=== PATIENT | female | born 1995 | race African-American/Black ===

== ENCOUNTER 2022-03-31 18:36 | Emergency (ER) | payer BC, SELFPAY ==
[2022-03-31 18:44] VITALS: BP 145/99; PULSE 106; RESP 16; TEMP 36.7; O2SAT 100
--- NOTE | 2022-03-31 18:59 | ED.ABDPAIN ---
HPI - Abdominal Pain General Chief Complaint: Abdominal Pain Stated Complaint: ABD PAIN Source: patient Mode of arrival: ambulatory Limitations: no limitations History of Present Illness HPI narrative: Patient presents for evaluation of right-sided abdominal pain. Symptom onset this morning. She states she has a history of normal menstruation but her last menstrual period was 02/24/2022. She took a home test this Saturday which was negative. She repeated the test either or Saturday of this week and both test were negative. She contacted her [employer] and wanted for what sounds to be a serum hCG test. She did not receive results from that test. She woke from sleep with her symptoms this morning. She initially thought her symptoms were related to menstrual cramping. However cramping with menstruation is normally more diffuse in presentation and this is localized to the right side. She states she notices this more when she stands upright. She also reports some discomfort that has been constant in the right lower quadrant since this morning. She reports some urinary frequency but denies dysuria and hematuria. She has had a urinary tract infection in the past but states her urine is normally cloudy with infections. She denies any vaginal bleeding or discharge. No fever, chills, vomiting, change in bowel pattern. She did have some nausea earlier this week but thought it was related to consuming some alcohol. No history of abdominal surgeries. She is sexually active with 1 male partner, never using condoms. She does take an oral contraceptive but her last pack ended 6 days ago. She did not start the new pack as she thought she was getting ready to start menstruating. Related Data Home Medications Medication Instructions Recorded Confirmed levonorgestrel-ethinyl estradiol tablet 03/31/22 0.1 mg-20 mcg tablet (Aviane) Allergies Allergy/AdvReac Type Severity Reaction Status Date / Time No Known Allergies Allergy Verified 03/31/22 18:43 Review of Systems Review of Systems: CONSTITUTIONAL: Denies fever, chills, or sweats. EYES: Denies visual changes, redness, or discharge. ENT: Denies rhinorrhea, congestion, sore throat, or otalgia. CARDIOVASCULAR: Denies chest pain, palpitations, or edema. RESPIRATORY: Denies cough or dyspnea. GASTROINTESTINAL: Reports abdominal pain. Denies nausea, vomiting, or diarrhea. GENITOURINARY: Denies dysuria or hematuria. SKIN: Denies rash or itching. MUSCULOSKELETAL: Denies back pain, joint pain, or myalgia. NEUROLOGIC: Denies headache, numbness, dizziness, or weakness. PSYCHIATRIC: Denies anxiety or depression. [facility] Past Medical History Medical History No pertinent past medical history Surgical History Surgical History No pertinent past surgical history Family History Family History Mother Patient's mother is in good health Father Patient's father is in good health Grandparent Hypertension Sibling Patient's sister is in good health Patient's brother is in good health Other Diabetes mellitus Family history of arthritis Family history of cardiovascular disease Family history of gout Social History Social History Smoking status: Never smoker Second hand tobacco smoke exposure: No Alcohol intake: current Alcohol use details: social Substance use: never Gender identity (if verbalized by the patient): Female Sexual Orientation (if Verbalized by the Patient): Straight or Heterosexual Spiritual care concerns: No Exam Narrative: GENERAL: Well-appearing, well-nourished, and in no acute distress. HEAD: Normocephalic, atraumatic. EYES: PERRLA and EOMI. ENT: Nares clear, no rhinorrhea or epistaxis. Mu
== END 2022-03-31 19:16 | disposition short-term general hospital (02) ==
PROVIDERS: Emergency Provider Nurse Practitioner
DX: R10.31 Right lower quadrant pain (principal)
CPT/HCPCS: 81003; 81025; 99202; G0463

== ENCOUNTER 2022-03-31 19:30 | Emergency (ER) | payer BC, SELFPAY ==
--- NOTE | ~2022-03-31 | CT_ITS ---
EXAMINATION: CT abdomen pelvis wo con DATE: 03/31/2022 21:38 INDICATION: right lower abdominal pain TECHNIQUE: Computed tomography (CT) of the abdomen and pelvis was performed without intravenous contr ast. Automated exposure control and iterative reconstruction technique were employed. The dose-length product was 889.34 mGy-cm. COMPARISON: None FINDINGS: Lower thorax: Unremarkable Liver: Normal. Biliary/Gallbladder: Gallbladder is normal. No bile duct dilation. Pancreas: No mass or duct dilation. Spleen: Normal. Adrenals:No mass. Kidneys: No mass, stone, or hydronephrosis. GI tract: No small or large bowel dilation. Normal appendix. Mesentery/Peritoneum: No ascites, mass, or free air. Retroperitoneum: No mass. Pelvis: Pelvic organs are within normal limits. Soft Tissues: Soft tissues and body wall unremarkable. Bones: No acute osseous finding. IMPRESSION: No acute abdominopelvic process. Reviewed, dictated and finalized at location K.
[2022-03-31 19:49] VITALS: BP 165/105; PULSE 115; RESP 16; TEMP 36.4; O2SAT 99
[2022-03-31 20:02] LABS: Basophils Absolute Auto 0.1 K/mm3 (0.0-0.1); Basophils Percent Auto 0.9 % (0.2-1.2); Eosinophils Absolute Auto 0.3 K/mm3 (0-0.3); Eosinophils Percent Auto 2.8 % (0-4.4); Hematocrit 40.3 % (37.0-47.0); Hemoglobin 12.9 g/dL (12.0-15.0); Immature Granulocyte Absolute 0.02 K/mm3 (0.00-0.031); Immature Granulocyte Percent A 0.2 % (0-0.5); Lymphocytes Absolute Auto 2.36 K/mm3 (0.9-3.2); Lymphocytes Percent Auto 25.8 % (18.3-44.2); Mean Corpuscular Hemoglobin 28.1 pg (26-34); Mean Corpuscular Volume 87.8 fl (80-100); Mean Platelet Volume 9.5 fl (7.4-10.4); Monocytes Percent Auto 10.8 % (2.6-8.5); Neutrophils Absolute Auto 5.5 K/mm3 (1.3-6.7); Neutrophils Percent Auto 59.5 % (45.5-73.1); Platelet Count Result 272 k/mm3 (150-375); Red Blood Count 4.59 M/mm3 (4.2-5.4); Red Cell Distribution Width 12.9 % (11.5-14.5); White Blood Count 9.2 K/mm3 (4.5-10.0)
[2022-03-31 20:06] LABS: Appearance Urine Clear (Clear); Bilirubin Urine Negative (Negative); Blood Urine 2+ (Negative); Color Urine Yellow (Yellow); Glucose Urine UA Negative (Negative); Ketones Urine Negative (Negative); Leukocyte Esterase Ur Negative LEU/UL (Negative); Nitrate Urine Negative (Negative); Protein Urine Negative (Negative); Specific Grav Ur 1.025 (1.001-1.035); Urobilinogen Urine 0.2 mg/dL (<2.0)
[2022-03-31 20:11] LABS: Add Urine Microscopic? YES; Mucus Urine Rare /lpf; Squamous Epithelial Cell Urine Few /hpf (Few); WBC Urine 0-3 /hpf
[2022-03-31 20:15] LABS: Alanine Aminotransferase 21 U/L (6-35); Albumin Level 4.5 g/dL (3.5-5.1); Alkaline Phosphatase 70 U/L (38-126); Anion Gap 9 mmol/L (8-16); Aspartate Amino Transferase 28 U/L (14-36); Bilirubin,Total 0.2 mg/dL (0.2-1.3); Blood Urea Nitrogen 10 mg/dL (7-17); Calcium 9.2 mg/dL (8.4-10.2); Carbon Dioxide 27 mmol/L (22-30); Chloride 105 mmol/L (98-107); Estimated CRCL calculation 82 ml/min; Estimated Glomerular Filt Rate > 60; Glucose 84 mg/dL (65-110); Lipase 49 U/L (23-300); Sodium 141 mmol/L (137-145)
[2022-03-31 21:08] VITALS: BP 149/99; PULSE 109; RESP 16; O2SAT 100
[2022-03-31 21:12] LABS: Pregnancy On Board Control Positive; Urine Pregnancy Test Negative
--- NOTE | 2022-03-31 21:25 | ED.ABDPAIN ---
HPI - Abdominal Pain General Chief Complaint: Abdominal Pain Stated Complaint: lower abdominal pain Time Seen by Provider: 03/31/22 20:51 Source: patient, RN notes reviewed and old records reviewed Mode of arrival: ambulatory Limitations: no limitations History of Present Illness HPI narrative: This is a 26 year old female who presents for evaluation of nausea and right lower abdominal pain. She reports nausea this week and she developed right lower abdominal pain today. She describes her abdominal pain as sharp pain that worsens with movement and walking. She has not taken any medication for her pain. She denies history of similar pain. She denies fever, chills, vomiting, diarrhea, dysuria or increased urinary urgency. She rates pain as 7/10. She was seen at [facility]. She had negative urine test and urine dip that shows hematuria. she denies history of kidney stones or ovarian cyst. Related Data Home Medications Medication Instructions Recorded Confirmed levonorgestrel-ethinyl estradiol tablet 03/31/22 0.1 mg-20 mcg tablet (Aviane) Allergies Allergy/AdvReac Type Severity Reaction Status Date / Time No Known Allergies Allergy Verified 03/31/22 21:08 Review of Systems Review of Systems: All systems reviewed & are unremarkable except as noted in HPI and below Constitutional: Constitutional: Denies chills and Denies fever(s) Cardiovascular: Cardiovascular: Denies chest pain and Denies rapid heart rate Respiratory: Respiratory: Denies chest congestion and Denies cough Gastrointestinal: Gastrointestinal: Reports abdominal pain, Denies diarrhea, Reports nausea and Denies vomiting Genitourinary: Genitourinary: Denies hematuria, Denies nocturia and Denies dysuria Musculoskeletal: Musculoskeletal: Denies back pain [facility] Past Medical History Medical History No pertinent past medical history Surgical History Surgical History No pertinent past surgical history Family History Family History Mother Patient's mother is in good health Father Patient's father is in good health Grandparent Hypertension Sibling Patient's sister is in good health Patient's brother is in good health Other Diabetes mellitus Family history of arthritis Family history of cardiovascular disease Family history of gout Social History Social History Smoking status: Never smoker Second hand tobacco smoke exposure: No Alcohol intake: current Alcohol use details: social Substance use: never Gender identity (if verbalized by the patient): Female Sexual Orientation (if Verbalized by the Patient): Straight or Heterosexual Spiritual care concerns: No Exam Const: General: healthy appearing Nutritional Appearance: well nourished Orientation/consciousness: patient oriented x3 Limitations: no limitations HENMT: Head: normal to inspection Eyes: EOM: EOMs intact bilaterally Chest: Chest palpation & inspection: normal inspection of the chest Resp: Effort & Inspection: normal respiratory effort Auscultation: clear to auscultation bilaterally Cardio: Rate: tachycardic Rhythm: regular rhythm Heart sounds: no murmurs GI: GI Palp: Yes Soft to palpation, Yes Tenderness to palpation present (GI) (RLQ), No Guarding due to palpation present (GI), No Rigid due to palpation and No Hernia present Auscultation: normal bowel sounds Urinary Catheter: Urinary Catheter: patent and draining Skin: General skin exam: normal color Neuro: General: patient oriented x3, moves all extremities and CN's II-XI intact bilaterally Extrem: General: normal to inspection Psych: Mental Status: mental status grossly normal Course Reevaluation(s) Reevaluation #1:
--- NOTE | 2022-03-31 21:27 | PC.NURSE ---
Pt to CT via stretcher at this time
[2022-03-31] MEDS: SODIUM CHLORIDE 0.9% IV 1,000 ML 999 ML IV CONT (21:41)
[2022-03-31] MEDS: ONDANSETRON INJ 4 MG/2 ML VIAL IV PUSH (21:41)
[2022-03-31] MEDS: KETOROLAC 30 MG/ML VIAL (*BKC) IV PUSH (21:41)
[2022-03-31 21:45] VITALS: BP 124/80; PULSE 98; RESP 18; O2SAT 100
[2022-03-31 23:08] VITALS: BP 133/81; PULSE 98; RESP 16; O2SAT 99
== END 2022-03-31 23:10 | disposition home or self-care (01) ==
PROVIDERS: Emergency Medicine; Emergency Provider General Practice
DX: R10.31 Right lower quadrant pain (principal)
CPT/HCPCS: 36415; 74176; 80053; 81001; 81025; 83690; 85025; 96361; 96374; 96375; 99284; J1885; J2405; J7030

== ENCOUNTER → 2022-04-12 14:44 | Outpatient (CLI) | payer BC, SELFPAY ==
--- NOTE | ~2022-04-12 | US_ITS ---
EXAMINATION: US pelvic complete w TV DATE: 04/12/2022 15:12 INDICATION: Pelvic pain Comparison:No prior studies for comparison. TECHNIQUE: Multiple transabdominal and endovaginal sonographic images of the pelvis performed. FINDINGS: The uterus measures 7.7 x 3.7 x 4.6 cm. The endometrial complex measures 4 mm. There is flu id in the cervix. The right ovary measures 3.2 x 1.5 x 2.5 cm and the left ovary measures 2.4 x 1.5 x 2.3 cm. There ar e small follicles in each ovary. Normal doppler signal in both ovaries. There is free fluid in the pelvis, likely physiologic. There are no abnormal masses seen on either s maeve. IMPRESSION: 1. Unremarkable pelvic ultrasound. Reviewed, dictated and finalized at location A.
== END ==
PROVIDERS: PCP Nurse Practitioner; Visit Provider Nurse Practitioner
DX: R10.2 Pelvic and perineal pain (principal)
CPT/HCPCS: 76830; 76856

== ENCOUNTER 2022-10-08 11:41 | Emergency (ER) | payer BC, SELFPAY ==
[2022-10-08 12:01] VITALS: BP 156/109; PULSE 94; RESP 16; TEMP 36.1; O2SAT 100
--- NOTE | 2022-10-08 12:17 | ED.URI ---
HPI - URI/Sore Throat General Chief Complaint: Upper Respiratory Infection Stated Complaint: NASAL CONGESTION/BODY ACHES Time Seen by Provider: 10/08/22 12:09 Source: patient Mode of arrival: ambulatory Limitations: no limitations History of Present Illness HPI Narrative: Patient presents today complaining 3 day history of congestion, cough, rhinorrhea, body aches. She also states she did not have a voice for 2 days coupled with since returned today. Denies fever or sore throat. Denies any known sick contacts. Denies history of asthma or COPD. She has been taking TheraFlu, Tylenol, ibuprofen, DayQuil, NyQuil. She is a nonsmoker. She has received a flu vaccine this season. Related Data Home Medications Medication Instructions Recorded Confirmed levonorgestrel-ethinyl estradiol 1 tablet PO DAILY 10/08/22 10/08/22 0.1 mg-20 mcg tablet (Aviane) Allergies Allergy/AdvReac Type Severity Reaction Status Date / Time No Known Allergies Allergy Verified 10/08/22 12:12 Review of Systems Review of Systems: CONSTITUTIONAL: Denies fever, chills, or sweats.+ body aches EYES: Denies visual changes, redness, or discharge. ENT: Denies sore throat, or otalgia.+ congestion, rhinorrhea, hoarse voice CARDIOVASCULAR: Denies chest pain, palpitations, or edema. RESPIRATORY: Denies dyspnea.+ cough GASTROINTESTINAL: Denies abdominal pain, nausea, vomiting, or diarrhea. GENITOURINARY: Denies dysuria or hematuria. SKIN: Denies rash, itching, or wounds. MUSCULOSKELETAL: Denies back pain, joint pain, or myalgia. NEUROLOGIC: Denies headache, numbness, tingling, or weakness. PSYCH: Denies depression or anxiety. [facility] Past Medical History Medical History No pertinent past medical history Surgical History Surgical History No pertinent past surgical history Family History Family History Mother Patient's mother is in good health Father Patient's father is in good health Grandparent Hypertension Sibling Patient's sister is in good health Patient's brother is in good health Other Diabetes mellitus Family history of arthritis Family history of cardiovascular disease Family history of gout Social History Social History Smoking status: Never smoker Second hand tobacco smoke exposure: No Alcohol intake: current Alcohol use details: social Substance use: never Gender identity (if verbalized by the patient): Female Sexual Orientation (if Verbalized by the Patient): Straight or Heterosexual Spiritual care concerns: No Comments At time of signature, I have reviewed and agree with nursing past medical, surgical, social and family history unless otherwise noted. Please see nursing chart for further information. There is no relevant family history pertinent to the presenting complaint Exam Narrative: GENERAL: Well-appearing, well-nourished, and in no acute distress. HEAD: Normocephalic, atraumatic. EYES: EOMI. No redness or drainage. Conjunctivae normal. ENT: Mucous membranes pink and moist. Nares congested. No rhinorrhea. TMs normal bilaterally. Throat without erythema. Tonsils 3+ without exudate. Uvula midline. NECK: Normal AROM. Supple. No lymphadenopathy. CHEST: No respiratory distress. Clear to auscultation. HEART: Regular rate and rhythm. No murmur appreciated. Normal peripheral pulses. EXTREMITIES: Normal range of motion. No edema. SKIN: Warm, dry, no rash. Capillary refill normal. Normal skin turgor. NEURO: No focal deficits. Alert and oriented x3. Gait steady. PSYCH: Normal affect. No signs of depression or anxiety. Course Course Level of Care: Express Care Visit Vital Signs Vital signs: Vital Signs Temperature 97 F L 10/08/22 12:01 Pul
== END 2022-10-08 12:35 | disposition home or self-care (01) ==
PROVIDERS: Emergency Provider Nurse Practitioner; PCP Family Medicine
DX: J02.0 Streptococcal pharyngitis (principal)
CPT/HCPCS: 87880; 99213; G0463

== ENCOUNTER 2022-12-23 17:22 | Emergency (ER) | payer BC, SELFPAY ==
[2022-12-23 17:34] VITALS: BP 128/81; PULSE 138; RESP 16; TEMP 38.2; O2SAT 99
--- NOTE | 2022-12-23 17:37 | ED.URI ---
HPI - URI/Sore Throat General Chief Complaint: Upper Respiratory Infection Stated Complaint: FEVER/SORE THROAT Time Seen by Provider: 12/23/22 17:43 Source: patient, RN notes reviewed and old records reviewed Mode of arrival: ambulatory Limitations: no limitations History of Present Illness HPI Narrative: 27 year old female who presents to [facility] care with complaints of sore throat, fevers, and body aches intermittently for the past week. Patient reports that she had a 104F fever today and took Ibuprofen with temperature now 100.7F. Patient reports that she has also been experiencing cough which is dry and intermittent. Patient has been COVID vaccinated and also has had Flu shot this season. MD elicited complaint: fever, sore throat and other (body aches) Onset (ago): week(s) (1) Pain scale (0-10): 7 Able to tolerate fluids by mouth: Yes Treatments prior to arrival: ibuprofen Related Data Allergies Allergy/AdvReac Type Severity Reaction Status Date / Time No Known Allergies Allergy Verified 12/23/22 17:31 Review of Systems Review of Systems: CONSTITUTIONAL: Reports malaise, chills, sweats, or fever. EYES: Denies visual changes, redness, or discharge. ENT: Reports rhinorrhea, congestion, sinus pain,no otalgia, positive for sore throat. CARDIOVASCULAR: Denies chest pain, palpitations, or edema. RESPIRATORY: Reports dry cough.? Denies dyspnea. GASTROINTESTINAL: Denies abdominal pain, nausea, vomiting, diarrhea SKIN: Denies rash or itching. MUSCULOSKELETAL: reports myalgia. NEUROLOGIC: Denies headache. All systems reviewed & are unremarkable except as noted in HPI and below PMFSH Past Medical History Medical History Sinusitis Strep pharyngitis Surgical History Surgical History Rosanky teeth extracted Family History Family History Mother Patient's mother is in good health Father Patient's father is in good health Grandparent Hypertension Sibling Patient's sister is in good health Patient's brother is in good health Other Diabetes mellitus Family history of arthritis Family history of cardiovascular disease Family history of gout Social History Social History (Updated 12/25/22 @ 08:55 by Meri Thrasher NP) Smoking status: Never smoker Second hand tobacco smoke exposure: No Alcohol intake: current Alcohol use details: social Substance use: never Living arrangements: with family Gender identity (if verbalized by the patient): Female Sexual Orientation (if Verbalized by the Patient): Straight or Heterosexual Spiritual care concerns: No Comments At time of signature, agree with nursing past medical, surgical, social and family history. There is no relevant family history pertinent to the presenting complaint Exam Narrative: GENERAL: Well-appearing, well-nourished, and in no acute distress. HEAD: Normocephalic EYES: PERRLA, conjunctivae clear ENT: Nares clear, turbinates edematous and erythematous, clear discharge. Mucous membranes moist. TM pearly alberto with dull light reflex bilaterally; no tragal tenderness. Oropharynx erythematous without lesions. Tonsils red and enlarged and without exudate, no drooling, no hoarseness, no trismus, uvula midline. NECK: Supple. lymphadenopathy CHEST: Clear to auscultation, breath sounds equal. No wheezing, rhonchi, rales, or stridor. No respiratory distress, speaks in full sentences.dry cough SAO2 99% on room air HEART: Regular rate and rhythm. No murmur heard. SKIN: Warm, dry, no rash. NEURO: Alert and oriented x3. PSYCH: Normal mood and affect Course Course Emergency Course: Patient is aware of diagnosis, understands and agrees to treatment plan.? Anticipatory guidance given.? Patient agrees to follow-up as directed and is aware of reasons to
== END 2022-12-23 17:45 | disposition home or self-care (01) ==
PROVIDERS: Emergency Provider Registered Nurse
DX: J02.0 Streptococcal pharyngitis (principal)
CPT/HCPCS: 87880; 99213; G0463

== ENCOUNTER → 2023-02-26 11:09 | Outpatient (CLI) | payer BC, SELFPAY ==
--- NOTE | ~2023-02-26 | US_ITS ---
Pelvic ultrasound. Clinical History: First trimester , inconclusive viability Technique: Realtime transabdominal and transvaginal scanning of the pelvis was performed. Color flow Doppler and Doppler spectral analysis were performed. Findings: The uterus is anteverted, and contains an intrauterine gestation. Small subchorionic hemorr velma measures 1.6 x 0.7 x 1.4 cm. [place]-rump length of 2.7 cm corresponds to an estimated gestational age of 9 weeks 4 days. heart rate is 178 bpm. Neither ovary visualized. No adnexal mass seen. There is no evidence of free fluid in the cul de sac. Impression: Live intrauterine gestation with estimated gestational age of 9 weeks 4 days. heart rate is 178 bpm. Sonographic KISHORE is 09/27/2023. Small subchorionic hemorrhage, as detailed above. Reviewed, dictated and finalized at location . Impression: Live intrauterine gestation with estimated gestational age of 9 weeks 4 days. F etal heart rate is 178 bpm. Sonographic KISHORE is 09/27/2023. Small subchorionic hemorrhage, as detailed above.
== END ==
PROVIDERS: PCP Advanced Practice Midwife; Visit Provider Advanced Practice Midwife
DX: O36.80X0 Pregnancy with inconclusive fetal viability, not applicable or unspecified (principal); Z3A.09 9 weeks gestation of pregnancy
CPT/HCPCS: 76801

== ENCOUNTER → 2023-03-29 11:19 | Outpatient (CLI) | payer BC, SELFPAY ==
--- NOTE | ~2023-03-29 | US_ITS ---
EXAMINATION: US OB limited DATE: 03/29/2023 11:37 INDICATION: Subchorionic hematoma during first trimester TECHNIQUE: Real-time ultrasound of the pelvis was performed. The interpreting radiologist was not pre sent for the study. COMPARISON: 02/26/2023 FINDINGS: There is a single living fetus in breech presentation. The placenta is anterior. No persist ent subchorionic hematoma is identified. cardiac activity and movement are noted. h eart rate is 164 beats per minute (bpm). The amniotic fluid index is subjectively normal. IMPRESSION: 1. Single living fetus in breech presentation. 2. No persistent subchorionic hematoma identified. Reviewed, dictated and finalized at location B.
== END ==
PROVIDERS: PCP Emergency Medicine; Visit Provider Obstetrics & Gynecology Gynecology
DX: O36.8910 Maternal care for other specified fetal problems, first trimester, not applicable or unspecified (principal); Z3A.00 Weeks of gestation of pregnancy not specified
CPT/HCPCS: 76815

== ENCOUNTER → 2023-05-10 10:18 | Outpatient (CLI) | payer BC, SELFPAY ==
--- NOTE | ~2023-05-10 | US_ITS ---
EXAMINATION: US OB /maternal detail DATE: 05/10/2023 10:56 INDICATION: Second trimester anatomic survey TECHNIQUE: Real-time ultrasound of the pelvis was performed. COMPARISON: None. FINDINGS: There is a single living fetus in vertex presentation. The placenta is anterior and 4.2 cm from the i nternal cervical os. The measured cervical length is 2.9 cm. heart rate is 153 beats per minute (bpm). cardiac activity and movement are noted. The amniotic fluid index is subjectivel y normal. The following anatomy was identified as normal: 4 chamber heart 3 vessel cord cord insertion kidneys urinary bladder stomach spine diaphragm ventricles cisterna magna cerebellum The following biometric data were obtained: Biparietal diameter (BPD): 4.8 cm; head circumference (HC): 17.9 cm; abdominal circumference (AC): 5. 4 cm; femur length (FL): 3.3 cm. These measurements are concordant. Estimated weight is 359 g +/- 53 g, which correlates with the 75th percentile when 09/27/2023 is used as estimated date of delivery. As single measurements, these parameters are each equal to the following estimated gestational ages w ith ranges of +/- 2 standard deviations: BPD: 20 weeks 4 days ( 18 weeks 5 days - 22 weeks 2 days). HC: 20 weeks 3 days ( 19 weeks 0 days - 21 weeks 6 days). AC: 20 weeks 4 days ( 18 weeks 4 days - 22 weeks 5 days). FL: 20 weeks 3 days ( 18 weeks 5 days - 22 weeks 2 days). estimated gestational age based solely on measurements from this exam is 20 weeks 4 days +/- 1 weeks 3 days. IMPRESSION: 1. Single living fetus in vertex presentation. 2. Estimated weight is 359 g +/- 53 g, which correlates with the 75th percentile when 09/27/2023 is used as estimated date of delivery. Reviewed, dictated and finalized at location B. IMPRESSION: 1. Single living fetus in vertex presentation. 2. Estimated weight is 359 g +/- 53 g, which correlates with the 75th per centile when 09/27/2023 is used as estimated date of delivery.
== END ==
PROVIDERS: PCP Advanced Practice Midwife; Visit Provider Advanced Practice Midwife
DX: Z36.9 Encounter for antenatal screening, unspecified (principal); Z3A.20 20 weeks gestation of pregnancy
CPT/HCPCS: 76805

== ENCOUNTER 2023-09-13 12:30 | Outpatient (CLI) | payer BC, SELFPAY ==
[2023-09-13 13:24] LABS: Hemoglobin 10.6 g/dL (12.0-15.0); Mean Corpuscular HGB Conc 33.1 g/dl (32-36); Mean Corpuscular Hemoglobin 29.9 pg (26-34); Mean Corpuscular Volume 90.4 fl (80-100); Mean Platelet Volume 10.5 fl (7.4-10.4); Platelet Count Result 224 k/mm3 (150-375); Red Blood Count 3.54 M/mm3 (4.2-5.4); Red Cell Distribution Width 13.5 % (11.5-14.5); White Blood Count 9.8 K/mm3 (4.5-10.0)
[2023-09-13 13:42] LABS: Alanine Aminotransferase 13 U/L (6-35); Albumin Level 3.9 g/dL (3.5-5.1); Alkaline Phosphatase 184 U/L (38-126); Anion Gap 9 mmol/L (8-16); Aspartate Amino Transferase 22 U/L (14-36); Bilirubin,Total 0.5 mg/dL (0.2-1.3); Blood Urea Nitrogen 8 mg/dL (7-17); Calcium 9.2 mg/dL (8.4-10.2); Carbon Dioxide 21 mmol/L (22-30); Chloride 107 mmol/L (98-107); Estimated Glomerular Filt Rate > 60; Glucose 80 mg/dL (65-110); Potassium 3.8 mmol/L (3.4-5.0); Sodium 137 mmol/L (137-145); Uric Acid 6.3 mg/dL (2.5-7.5)
== END 2023-09-13 12:31 | disposition home or self-care (01) ==
LOC: ANHLAB 12:33
PROVIDERS: Visit Provider Advanced Practice Midwife
DX: O13.3 Gestational [pregnancy-induced] hypertension without significant proteinuria, third trimester (principal); Z3A.00 Weeks of gestation of pregnancy not specified
CPT/HCPCS: 36415; 80053; 84550; 85027

== ENCOUNTER 2023-09-16 08:26 | Outpatient (CLI) | payer BC, SELFPAY ==
[2023-09-16 10:18] LABS: Total Protein Urine Random < 5 mg/dL
[2023-09-16 11:00] LABS: Total Protein Urine 24 Hr 40 mg/24hr (28-141); Total Volume 24 Hour Urine 800 ml
== END 2023-09-16 08:27 | disposition home or self-care (01) ==
LOC: ANHLAB 08:27
PROVIDERS: Visit Provider Advanced Practice Midwife
DX: O13.3 Gestational [pregnancy-induced] hypertension without significant proteinuria, third trimester (principal); Z3A.00 Weeks of gestation of pregnancy not specified
CPT/HCPCS: 81050; 84156

== ENCOUNTER 2023-09-22 17:35 | Inpatient (IN) | payer BC, SELFPAY ==
[2023-09-22] VITALS (20 sets, daily range): BP systolic 121–144; BP diastolic 65–110; PULSE 71–99; TEMP 36.4–36.6; BMI 44.1
--- NOTE | ~2023-09-22 | US_ITS ---
EXAMINATION:US venous doppler LE RT INDICATION:Calf pain. Tachycardia. TECHNIQUE: Multiple grayscale, color flow and Doppler images of the right lower extremity deep venous systems were obtained and reviewed. COMPARISON:No prior studies for comparison. FINDINGS: The common femoral, superficial femoral and popliteal veins demonstrate normal respiratory variation, augmentation and compressibility. Color flow is also seen within the posterior tibial, pe roneal, greater saphenous and profunda veins. IMPRESSION: 1: No lower extremity deep venous thrombosis. Reviewed, dictated and finalized at location B. [employer]
--- NOTE | 2023-09-22 18:35 | LDADM ---
This patient, Siomara Melendez, was admitted to Labor/Delivery/Recovery 107 on 09/22/23 at 17:35. Plans for labor, pain management and were discussed with patient. Patient/family oriented to hospital policies and general routines including ID bracelet, bed and alarms, visiting hours, pain management, procedures, bathroom and other care routines, personal items, smoking policy, room service/diet and guest tray routines, security routines, and visiting hours. Patient/Family are encouraged to report perceived risks to care and to ask questions if they do not understand what they are told or what they should do. See OBIX for further documentation.
[2023-09-22 19:35] LABS: Basophils Percent Auto 0.2 % (0.2-1.2); Eosinophils Absolute Auto 0.1 K/mm3 (0-0.3); Eosinophils Percent Auto 0.7 % (0-4.4); Hematocrit 32.1 % (37.0-47.0); Hemoglobin 10.6 g/dL (12.0-15.0); Immature Granulocyte Absolute 0.04 K/mm3 (0.00-0.031); Immature Granulocyte Percent A 0.4 % (0-0.5); Lymphocytes Absolute Auto 1.66 K/mm3 (0.9-3.2); Lymphocytes Percent Auto 16.8 % (18.3-44.2); Mean Corpuscular Hemoglobin 30.3 pg (26-34); Mean Corpuscular Volume 91.7 fl (80-100); Mean Platelet Volume 10.3 fl (7.4-10.4); Monocytes Absolute Auto 0.9 K/mm3 (0.1-0.6); Neutrophils Absolute Auto 7.2 K/mm3 (1.3-6.7); Neutrophils Percent Auto 72.9 % (45.5-73.1); Platelet Count Result 217 k/mm3 (150-375); Red Cell Distribution Width 13.9 % (11.5-14.5); White Blood Count 9.9 K/mm3 (4.5-10.0)
[2023-09-22] MEDS: miSOPROStol 25 MCG TABLET PO ×2 (19:35→23:54)
[2023-09-22] MEDS: LACTATED RINGERS 1,000 ML 125 ML IV CONT (20:39)
[2023-09-22 21:49] LABS: Alanine Aminotransferase 13 U/L (6-35); Albumin Level 3.8 g/dL (3.5-5.1); Alkaline Phosphatase 168 U/L (38-126); Anion Gap 9 mmol/L (8-16); Aspartate Amino Transferase 24 U/L (14-36); Bilirubin,Total 0.5 mg/dL (0.2-1.3); Blood Urea Nitrogen 9 mg/dL (7-17); Calcium 9.4 mg/dL (8.4-10.2); Carbon Dioxide 22 mmol/L (22-30); Chloride 105 mmol/L (98-107); Estimated CRCL calculation 126 ml/min; Estimated Glomerular Filt Rate > 60; Glucose 80 mg/dL (65-110); Potassium 3.7 mmol/L (3.4-5.0); Sodium 136 mmol/L (137-145)
[2023-09-23] VITALS (231 sets, daily range): BP systolic 72–172; BP diastolic 23–120; PULSE 36–215; TEMP 36.2–38.8; O2SAT 64–100
[2023-09-23] MEDS: LACTATED RINGERS 1,000 ML 125 ML IV CONT ×2 (03:25→11:09)
[2023-09-23] MEDS: miSOPROStol 25 MCG TABLET 50 MCG PO (03:57)
--- NOTE | 2023-09-23 06:02 | WPDANESEPP ---
Anes - Eval Pre Procedure Procedure: labor epidural Date/Time: 09/23/23 06:02 Pre Op Diagnosis: Induction of Labor Patient Data Age: 28 Gender: F Height: 1.52 m Weight: 102.7 kg Last Vital Signs Temp 36.6 C 09/22/23 21:30 Pulse 81 09/23/23 06:01 BP 155/91 H 09/23/23 06:01 Allergies Allergy/AdvReac Type Severity Reaction Status Date / Time No Known Allergies Allergy Verified 12/23/22 17:31 Home Medications Medication Instructions Recorded Confirmed Type ferrous sulfate 325 mg (65 mg 325 mg PO DAILY 08/30/23 08/30/23 History iron) tablet prenat.vits,violette,frr-jbup-nhyis 1 tablet 08/30/23 History valacyclovir 500 mg tablet 500 mg PO BID 08/30/23 08/30/23 History (Valtrex) Laboratory Tests 09/22/23 09/22/23 17:51 21:23 WBC 9.9 K/mm3 (4.5-10.0) RBC 3.50 L M/mm3 (4.2-5.4) Hgb 10.6 L g/dL (12.0-15.0) Hct 32.1 L % (37.0-47.0) MCV 91.7 fl (80-100) MCH 30.3 pg (26-34) MCHC 33.0 g/dl (32-36) RDW 13.9 % (11.5-14.5) Plt Count 217 k/mm3 (150-375) MPV 10.3 fl (7.4-10.4) Immature Gran % (Auto) 0.4 % (0-0.5) Neut % (Auto) 72.9 % (45.5-73.1) Lymph % (Auto) 16.8 L % (18.3-44.2) Gibson % (Auto) 9.0 H % (2.6-8.5) Eos % (Auto) 0.7 % (0-4.4) Baso % (Auto) 0.2 % (0.2-1.2) Lymph # (Auto) 1.66 K/mm3 (0.9-3.2) Gibson # (Auto) 0.9 H K/mm3 (0.1-0.6) Eos # (Auto) 0.1 K/mm3 (0-0.3) Baso # (Auto) 0.0 K/mm3 (0.0-0.1) Abs Immat Gran (auto) 0.04 H K/mm3 (0.00-0.031) Absolute Neuts (auto) 7.2 H K/mm3 (1.3-6.7) Absolute Nucleated RBC 0.0 K/mm3 (0.0-0.012) Nucleated RBC % 0.0 % (0.0-0.2) Sodium 136 L mmol/L (137-145) Potassium 3.7 mmol/L (3.4-5.0) Chloride 105 mmol/L (98-107) Carbon Dioxide 22 mmol/L (22-30) Anion Gap 9 mmol/L (8-16) BUN 9 mg/dL (7-17) Creatinine 0.60 L mg/dL (0.7-1.0) Estim Creat Clear Calc 126 ml/min Estimated GFR > 60 (59 - ) Glucose 80 mg/dL (65-110) Calcium 9.4 mg/dL (8.4-10.2) Total Bilirubin 0.5 mg/dL (0.2-1.3) AST 24 U/L (14-36) ALT 13 U/L (6-35) Alkaline Phosphatase 168 H U/L (38-126) Total Protein 7.0 g/dL (6.3-8.2) Albumin 3.8 g/dL (3.5-5.1) RPR Pending Blood Type O Positive Antibody Screen Negative Patient hx anesthesia problems: none Family hx anesthesia problems: none Results Review: All pre-operative results and documents have been reviewed as part of the pre-operative evaluation. [facility] Past Medical History Medical History Sinusitis Strep pharyngitis Surgical History Surgical History Weir teeth extracted Family History Family History Mother Patient's mother is in good health Father Patient's father is in good health Grandparent Hypertension Sibling Patient's sister is in good health Patient's brother is in good health Other Diabetes mellitus Family history of arthritis Family history of cardiovascular disease Family history of gout Social History Social History Smoking status: Never smoker Second hand tobacco smoke exposure: No Alcohol intake: current Alcohol use details: social Substance use: never Lack of Transportation: No Lack of Food: Never True Current Housing: I Have Housing Concerned About Future Housing: No Difficulty Paying Gas/Electric Bills: No Difficulty Paying for Meds: No Currently Unemployed: No Education: Master's Degree or Higher Difficulty w/ Childcare or Family Care: No Living arrang
--- NOTE | 2023-09-23 07:49 | WPDOBADMIT ---
Obstetrics - Admit Note Admission Note: record reviewed. No pertinent additions to the history and/or any subsequent changes in the physical findings that are not consistent with the expected course of the were found. Additions to the history and/or subsequent changes in the physical findings follow. None.
--- NOTE | 2023-09-23 07:50 | PM.OBPNLAB ---
Pain Control Date/time seen: 09/23/23 07:40 Pain control: tolerating well Comments: Feeling some contractions in her back and buttocks. Family present and supportive. SROM overnight, clear fluid. Pelvic Exam Dilation (cm): 1 Effacement (%): 80 station: -3 Amniotic membrane status: Ruptured Comments: head well applied to cervix. Contractions Monitor mode: External Contraction frequency: 2 Contraction pattern: Regular Contraction intensity: Moderate Status status: Category l Comments: Baseline 135. Moderate variability. + accelerations. Assessment and Plan Assessment: induction ongoing Plan: continuous present management Comments: CNM to bedside. Plan to start pitocin if ctx pattern spaces out. Encouraged positions on hands and knees and leaning forward to facilitate optimal positioning. Anticipate vaginal . Dr. Meléndez updated.
[2023-09-23] MEDS: ACETAMINOPHEN 500 MG TABLET 1000 MG PO ×2 (07:58→22:20)
[2023-09-23] MEDS: OXYTOCIN 30 UNITS/NS 500 ML 30 UNITS/500 ML BAG IV CONT (12:19)
[2023-09-23] MEDS: ONDANSETRON INJ 4 MG/2 ML VIAL IV PUSH (13:04)
[2023-09-23] MEDS: fentaNYL CITRATE INJ (*CRX) 100 MCG/2 ML VIAL 50 MCG IV PUSH (13:06)
[2023-09-23 14:54] LABS: Rapid Plasma Reagin Non-Reactive (NonReactive)
--- NOTE | 2023-09-23 17:18 | PM.OBPNLAB ---
Pain Control Date/time seen: 09/23/23 17:18 Pain control: tolerating well and epidural Pelvic Exam Amniotic membrane status: Ruptured Comments: no exam at this time. Contractions Monitor mode: Internal Contraction frequency: 2 Contraction pattern: Irregular (1.5-4) Contraction intensity: Moderate Status status: Category ll Assessment and Plan Assessment: induction ongoing Comments: Assisted with repositioning to far R lateral with left leg on peanut ball. Plan to reposition to similar style on left side in 10-15 min. Ctx pattern irregular. Suspect asynclitic presentation. Anticipate vaginal . Family present and supportive. Dr. Meléndez updated.
[2023-09-23] MEDS: SODIUM CHLORIDE 0.9% IV 300 ML 600 ML I-UTERINE (20:28)
[2023-09-23] MEDS: LACTATED RINGERS 1,000 ML 999 ML IV CONT ×2 (20:44→22:21)
[2023-09-23] MEDS: AMPICILLIN 2 GM/NS 100 ML 2 GM/100 ML BAG IVPB (22:24)
[2023-09-24] VITALS (330 sets, daily range): BP systolic 77–152; BP diastolic 25–126; PULSE 67–147; RESP 16–20; TEMP 36.8–37.3; O2SAT 78–100
--- NOTE | 2023-09-24 01:19 | PM.OBPNLAB ---
Pain Control Date/time seen: 09/24/23 01:19 Pain control: tolerating well and epidural Comments: no discomfort Pelvic Exam Comments: 7cm on last exam Contractions Monitor mode: Internal Contraction pattern: Irregular (1.5-4) Contraction intensity: Moderate Status status: Category ll Assessment and Plan Pitocin rate (mU/min): 2 Assessment: induction ongoing Comments: Recent episode of maternal hypotension and prolonged FHT deceleration. FHTs recovered and returned to Cat 1 tracing. Pitocin resumed. Will titrate as needed to achieve adequate contraction pattern. Antibiotics infusing 2/2 prolonged ROM.
--- NOTE | 2023-09-24 01:51 | PM.IMHP ---
H&P: HPI History of Present Illness Date/Time: 09/24/23 01:51 Chief Complaint: IOL due to gHTN Narrative: Siomara is a 28y.o. undergoing IOL due to gHTN. Prolonged ROM. Review of Systems Review of Systems: All systems reviewed & are unremarkable except as noted in HPI and below PMFSH Past Medical History Medical History Sinusitis Strep pharyngitis Surgical History Surgical History Ovalo teeth extracted Family History Family History Mother Patient's mother is in good health Father Patient's father is in good health Grandparent Hypertension Sibling Patient's sister is in good health Patient's brother is in good health Other Diabetes mellitus Family history of arthritis Family history of cardiovascular disease Family history of gout Social History Social History Smoking status: Never smoker Second hand tobacco smoke exposure: No Alcohol intake: current Alcohol use details: social Substance use: never Lack of Transportation: No Lack of Food: Never True Current Housing: I Have Housing Concerned About Future Housing: No Difficulty Paying Gas/Electric Bills: No Difficulty Paying for Meds: No Currently Unemployed: No Education: Master's Degree or Higher Difficulty w/ Childcare or Family Care: No Living arrangements: with family Gender identity (if verbalized by the patient): Female Sexual Orientation (if Verbalized by the Patient): Straight or Heterosexual Spiritual care concerns: No Meds Home Medications and Allergies Home Medications Medication Instructions Recorded Confirmed Type ferrous sulfate 325 mg (65 mg 325 mg PO DAILY 08/30/23 08/30/23 History iron) tablet prenat.vits,violette,raw-lvah-kuodx 1 tablet 08/30/23 History valacyclovir 500 mg tablet 500 mg PO BID 08/30/23 08/30/23 History (Valtrex) Allergies Allergy/AdvReac Type Severity Reaction Status Date / Time No Known Allergies Allergy Verified 12/23/22 17:31 Vital Signs Vital Signs - 24 hr 09/23/23 02:00 09/23/23 02:15 09/23/23 02:30 Temperature Pulse Rate 80 77 74 Blood Pressure 135/85 130/87 133/84 Pulse Oximetry 09/23/23 02:45 09/23/23 03:00 09/23/23 03:15 Temperature Pulse Rate 80 75 83 Blood Pressure 131/90 135/81 138/91 H Pulse Oximetry 09/23/23 03:30 09/23/23 03:45 09/23/23 04:01 Temperature Pulse Rate 73 78 84 Blood Pressure 129/85 142/89 H 123/56 L Pulse Oximetry 09/23/23 04:15 09/23/23 04:30 09/23/23 05:00 Temperature 98.5 F Pulse Rate 83 79 91 Blood Pressure 115/68 121/74 147/98 H Pulse Oximetry 09/23/23 05:16 09/23/23 05:31 09/23/23 05:46 Temperature Pulse Rate 82 89 88 Blood Pressure 153/96 H 148/84 H 141/87 H Pulse Oximetry 09/23/23 06:01 09/23/23 06:16 09/23/23 06:21 Temperature Pulse Rate 81 84 81 Blood Pressure 155/91 H 160/113 H 151/89 H Pulse Oximetry 09/23/23 06:30 09/23/23 06:45 09/23/23 07:00 Temperature Pulse Rate 90 84 87 Blood Pressure 153/89 H 152/106 H 133/70 Pulse Oximetry 09/23/23 07:15 09/23/23 07:30 09/23/23 08:17 Temperature 97.5 F L Pulse Rate 79 85 71 Blood Pressure 140/89 145/87 H 154/41 H Pulse Oximetry 09/23/23 08:30 09/23/23 08:45 09/23/23 09:00 Temperature Pulse Rate 91 115 H 94 Blood Pressure 133/67 132/99 H 153/95 H Pulse Oximetry 09/23/23 09:15 09/23/23 09:30 09/23/23 09:45 Temperature 98.2 F Pulse Rate 86 85 71 Blood Pressure 142/95 H 142/82 H 140/69 Pulse Oximetry 09/23/23 10:01 09/23/23 10:15 09/23/23 10:30 Temperature Pulse Rate 88 86 69 Blood Pressure 113/77 133/84 137/85 Pulse Oximetry 09/23/23 10:45 09/23/23 11:15 09/23/23 11:31 Temperature P
[2023-09-24] MEDS: AMPICILLIN 1 GM/NS 50 ML 1 GM/50 ML BAG IVPB ×4 (02:16→14:40)
--- NOTE | 2023-09-24 07:29 | PM.OBPNLAB ---
Pain Control Date/time seen: 09/24/23 07:10 Pain control: tolerating well and epidural Comments: Spoke with Dr. Meléndez this am at about 0630. Reviewed overnight events, SVE, and tracing. Contractions Monitor mode: Internal Contraction frequency: 2 Contraction pattern: Irregular (1.5-4) Contraction intensity: Strong/Firm Status status: Category ll Assessment and Plan Pitocin rate (mU/min): 6 Assessment: induction ongoing Comments: CNM to bedside. Discussed plan of care. Discussed length of labor and ROM. Discussed ctx pattern and possible causes. Pt desires to proceed for attempt at vaginal . Family present and supportive.
[2023-09-24] MEDS: ONDANSETRON INJ 4 MG/2 ML VIAL IV PUSH (07:39)
[2023-09-24] MEDS: CALCIUM CARBONATE (TUMS) 500 MG (200 MG ELEMENTAL) 400 MG (08:25)
[2023-09-24] MEDS: diphenhydrAMINE HCl INJ 50 MG/ML VIAL 25 MG IV PUSH (08:25)
--- NOTE | 2023-09-24 08:54 | PM.OBPNLAB ---
Pain Control Date/time seen: 09/24/23 08:00 Pain control: tolerating well and epidural Pelvic Exam Dilation (cm): 5 Effacement (%): 80 station: -1 (capput to 0 station) Amniotic membrane status: Ruptured Contractions Monitor mode: Internal Contraction intensity: Moderate Assessment and Plan Comments: SVE with cervical edema especially to anterior portion. Swollen down to 5cm. +capput. Discussed findings and plan with pt and family. Pt desires to continue to try for vaginal . Has not had consistently adequate ctx pattern. Recommend pitocin break, IV benadryl, and po tums. Assisted in repositioning to hands and knees. Tolerated well. Assisted with vigorous pelvic rocking. Plan to restart pitocin at 0930 and have RN check cervix after 2 hours of adequate contractions. Dr. Meléndez updated.
[2023-09-24] MEDS: LACTATED RINGERS 1,000 ML 125 ML IV CONT (10:30)
--- NOTE | 2023-09-24 14:48 | PM.OBPNLAB ---
Pain Control Date/time seen: 09/24/23 14:30 Pain control: epidural Pelvic Exam Comments: 9cm on RN last exam Contractions Monitor mode: Internal Contraction frequency: 2 (2-3) Contraction pattern: Regular (1.5-4) Contraction intensity: Moderate Status status: Category ll Assessment and Plan Assessment: induction ongoing Comments: Discussed plan of care with Dr. Meléndez and RN. Recommend increasing pitocin to achieve adequate ctx pattern. RN called back after discussing recommendatino with Siomara and family. Pt tearful and frustrated. CNM's phone call transferred to pt room. Spoke with Siomara and her family member. Discussed labor status and cervical change since this am. Reviewed tracing and discussed that current contraction pattern is regular and increasingly reassuring. Recommend continuing pitocin and repeating SVE at 1600 (or after 2 hours of adequate contraction pattern). Pt and family are agreeable to proceeding.
--- NOTE | 2023-09-24 17:10 | PM.OBPNLAB ---
Pain Control Date/time seen: 09/24/23 17:00 Pain control: epidural Pelvic Exam Dilation (cm): 9 Effacement (%): 90 station: -1 (capput to 0 station) Amniotic membrane status: Ruptured Comments: Cervix feels edematous. Capput to +1 station. Contractions Monitor mode: Internal Contraction frequency: 0 (1.5-6) Contraction pattern: Irregular (1.5-4) Contraction intensity: Moderate Status status: Category ll Assessment and Plan Assessment: other Plan: Comments: Discussed cervical exam, labor status, and status with patient and family. Patient desires section. discussed plan of care with Dr. Casas. MD will be EN route to hospital after office procedure for section delivery. Discussed procedure, risks ( Including pain, discomfort, infection, bleeding, damage to surrounding organs), benefits, expectations of delivery with patient and her family. All questions answered. Pitocin to be discontinued. RN notifying anesthesia team.
[2023-09-24] MEDS: AZITHROMYCIN 500 MG/NS 250 ML 500 MG/250 ML BAG 250 MG IVPB (17:13)
--- NOTE | 2023-09-24 17:39 | P.PNAN_ITS ---
Anes - Eval Final PreProcedure Day of Procedure 09/24/23 17:39 Patient weight: morbidly obese Heart: regular rate and rhythm Lungs: clear to auscultation Airway: Mallampati scale class II Neurological: alert and oriented ASA classification: III Emergent: no Anesthetic plan: proceed Anesthesia type and monitoring: regional epidural and standard monitoring Other findings: use existing epid for c/s discussed SAB and GEN possibility Results Review: All pre-operative results and documents have been reviewed as part of the pre- operative evaluation. Informed Consent: The patient's anesthetic plan and its attendant risks and benefits were discussed with the patient/family/POA. Questions were solicited and answers provided to the satisfaction of the patient/family/POA.
[2023-09-24] MEDS: ceFAZolin 3 GM/D5W 100 ML 100 ML IVPB (18:00)
--- NOTE | 2023-09-24 18:38 | W.PM.OBCSD ---
OB - Delivery Note Procedure Delivery date: 09/24/23 Pre-op diagnosis: Arrest of Dilation and Other ( prolonged rupture of membranes) Post-op Diagnosis: Same Induction method: AROM and Per Pitocin Protocol Delivery monitor: Internal FHT and Internal Uterine Procedure Performed: Primary Primary branch: low cervical, transverse Surgeon: Flores Meléndez MD Anesthesia type: Epidural Description of Procedure/Findings: The patient is taken to the operating room and placed under anesthesia in the dorsal supine position with a leftward tilt. Once anesthesia was deemed adequate a Pfannenstiel skin incision was made with a scalpel and carried down to the underlying layer of fascia. Fascia was nicked in the midline with a scalpel and extended laterally using Arzola scissors. Ochsner was used to tent the fascia which was then dissected off using sharp and blunt dissection. Rectus muscles were in the midline and the peritoneum entered with Metzenbaum scissors after being tented with a Peon. The incision was extended with blunt traction. The bladder blade is placed. The vesicouterine peritoneum was tented and entered with Metzenbaum scissors. The incision was extended laterally with Metzenbaum and the bladder flap created digitally. The bladder blade is replaced. The lower uterine segment was incised with a scalpel. The incision was extended laterally with blunt traction. At the level of the incision the chin is noted. The head is very deep in the pelvis and elevated into the incision. The head is noted to be in the straight OP position. The was fully delivered and cord clamped and cut after 1minute of delayed cord clamping. Cord gases and cord blood were taken. The placenta was removed using manual traction. The uterus is cleared of all clots and debris and exteriorized. The tubes, ovaries, and uterus appear normal. The uterine incision was closed using 0 Monocryl in a running locked fashion. The right angle extended downward. The right angle was grasped with an Allis clamp to identify the distal end. The 2nd layer of imbricating suture of 0 Monocryl was placed. Additional [id number] sutures are required in the right angle for hemostasis. After watching for 2minutes there was no further bleeding. The cul-de-sac and the gutters are irrigated. The uterus was returned to the abdomen. The incision was again inspected noted to be hemostatic. The fascia was then closed with 0 Vicryl in a running fashion. Subcutaneous tissues are irrigated and made hemostatic with Bovie cautery. The skin incision was closed using 4-0 Vicryl in a subcuticular fashion. Sponge, needle, and instrument counts are correct per the OR staff. Patient received 3g of Ancef as well as Zithromax prior to skin incision. Patient was taken to recovery in stable condition. Estimated Blood Loss: 655 Drains: Yes ( Bell catheter) Packing: No Pathology: Yes ( placenta) Complications: No immediate complications Condition: Stable Disposition: Floor Baby Date of : 09/24/23 Weeks of gestation at delivery: 39 Infant gender: Male Weight (pounds): 7 Weight (ounces): 5 presentation: vertex position: Other ( occiput posterior) Placenta delivery description: Spontaneous Cord Vessel Description: 3 Vessels and Delayed Cord Clamping score one minute: 8 score five minutes: 9
--- NOTE | 2023-09-24 18:44 | PM.OBDSVD ---
DS: Admitting Diagnosis Discharge Date 09/28/23 Admitting Diagnosis intrauterine at 39 weeks for medical induction of labor gestational hypertension DS: Discharge Diagnosis Discharge Diagnosis (1) Gestational hypertension: Qualifiers: Trimester: third trimester Qualified Code(s): O13.3 - Gestational [-induced] hypertension without significant proteinuria, third trimester Code(s): O13.9 - Gestational [-induced] hypertension without significant proteinuria, unspecified trimester Status: Acute (2) S/P : Code(s): Z98.891 - History of uterine scar from previous surgery Status: Acute Assessment and Plan: low-transverse section for failure to progress OB - DS: Summary OB Procedures : NST, PIH Mgmt and Ultrasound OB Procedures Intrapartum: low cervical, transverse OB Procedures: : None Peripartum Data Infant Delivery Method: Section Procedures: Procedures Operation Date: 09/24/23 17:45 <No data on this case meets the specified criteria> Status at Discharge Functional status at discharge: independent ambulation Overall status at discharge: patient is progressing back to baseline Time Spent with Patient Time attestation: Total time spent providing and/or coordinating discharge services: Discharge Plan Discharge Attending physician on discharge: Flores Meléndez Discharging Clinician: Flores Meléndez Anticipated Discharge Date/Time: 09/27/23 18:48 Patient Disposition: Home, Self-Care Activity: may shower, may drive after 2 weeks and pelvic rest Diet: regular Wound Care Instructions: incision open to air Discharge Instructions: Education: Mom and Baby Guide Given to: Mother Follow-Up: Call your delivering provider's office on Saturday for an appointment to be seen in 1 week for blood pressure check Mom and baby should come to the [facility] for the follow-up appointment. Appointment Date/Time: September 30, 2023 at 8:00 am What to expect at your follow-up visit: Blood Pressure Check Physical Assessment Call [phone] if you are unable to keep your appointment time. BREAST CARE: * Wear a snug supportive bra. * For engorgement discomfort: Breast Feeding: * Apply warm moist washcloths * Express milk as needed to relieve engorgement * Wear loose clothing Bottle Feeding: * May apply ice packs * For sore nipples: * Identify correct latch-on * Apply warm moist washcloths before and after nursing * Air dry nipples after nursing * May apply Lansinoh cream to nipples ABDOMINAL INCISION: (if applicable) * Do NOT use lotions for powders on your incision * When showering, allow soap and water to run over the incision, but do not wash incision *Dry incision gently with a clean dry towel. Use a fresh towel with each shower. PERINEAL CARE: * Until bleeding stops, use your glen bottle after urinating * Change your pad frequently throughout the day * No tub baths until seen by your physician - You may shower ACTIVITY: * Rest as much as possible. * Do not exercise or lift anything heavier than your baby (such as laundry or other children.) * Avoid stairs or driving as much as possible. * Do not put anything into the vagina. No douching, tampons, or sexual activity until seen by physician. NOTIFY PHYSICIAN IF YOU HAVE ANY QUESTIONS OR IF ANY OF THE FOLLOWING SYMPTOMS OCCUR: * If your incision becomes red, swollen, or more painful than what you have experienced in the hospital. * If your vaginal bleeding becomes foul smelling. * If your vaginal bleeding becomes more heavy than a period or if your bleeding changes from pink to bright red. However, you may pass an occasional walnut-sized clot once or twice for the first week . * If you experience a sharp, shooting pain in you calv
--- NOTE | 2023-09-24 20:52 | PC.NURSE ---
Patient transferred to post room #290 per stretcher from labor and delivery. Support person present. Oriented to unit, room, information board, rooming in, admission packet and security measures. Patient verbalizes understanding.
[2023-09-25] MEDS: DEXTROSE 5%/0.45% SOD CHL 1,000 ML 125 ML IV CONT ×2 (02:40→08:53)
[2023-09-25] MEDS: KETOROLAC 30 MG/ML VIAL (*BKC) IV PUSH (02:46)
[2023-09-25 04:15] VITALS: BP 115/64; PULSE 102; RESP 18; TEMP 36.6
[2023-09-25 05:12] LABS: Basophils Absolute Auto 0.1 K/mm3 (0.0-0.1); Basophils Percent Auto 0.3 % (0.2-1.2); Eosinophils Absolute Auto 0.1 K/mm3 (0-0.3); Eosinophils Percent Auto 0.5 % (0-4.4); Hematocrit 25.6 % (37.0-47.0); Hemoglobin 8.4 g/dL (12.0-15.0); Immature Granulocyte Absolute 0.11 K/mm3 (0.00-0.031); Immature Granulocyte Percent A 0.6 % (0-0.5); Lymphocytes Absolute Auto 1.82 K/mm3 (0.9-3.2); Lymphocytes Percent Auto 9.3 % (18.3-44.2); Mean Corpuscular HGB Conc 32.8 g/dl (32-36); Mean Corpuscular Hemoglobin 30.2 pg (26-34); Mean Corpuscular Volume 92.1 fl (80-100); Mean Platelet Volume 10.3 fl (7.4-10.4); Monocytes Absolute Auto 2.1 K/mm3 (0.1-0.6); Monocytes Percent Auto 10.9 % (2.6-8.5); Neutrophils Absolute Auto 15.4 K/mm3 (1.3-6.7); Neutrophils Percent Auto 78.4 % (45.5-73.1); Platelet Count Result 173 k/mm3 (150-375); Red Blood Count 2.78 M/mm3 (4.2-5.4); Red Cell Distribution Width 13.9 % (11.5-14.5); White Blood Count 19.6 K/mm3 (4.5-10.0)
[2023-09-25] MEDS: MULTIVIT/MIN/PREN/FOL AC/IRON TABLET 1 TAB PO (08:19)
[2023-09-25] MEDS: POLYSACCHARIDE IRON COMPLEX 150 MG CAPSULE PO ×2 (08:19→16:55)
[2023-09-25] MEDS: IBUPROFEN 600 MG TABLET PO ×2 (08:19→16:55)
[2023-09-25] MEDS: DOCUSATE SODIUM 100 MG CAPSULE PO ×2 (08:19→16:55)
[2023-09-25] MEDS: HYDROcodone/acetaminophen (*CRX) 5-325 MG TABLET 1 TAB PO ×3 (08:20→20:59)
--- NOTE | 2023-09-25 08:50 | WPDANLDPN2 ---
Anes-Prog Note L&D Date/Time: 09/25/23 08:50 Comfortable throughout: section Neuraxial method: epidural Epidural/Spinal procedure site: clean & non-tender Neuro status: Neuro function grossly intact. Cardiovascular status: normal Respiratory status: normal Airway patency: baseline Mental status: baseline Post-Op hydration status: normal Vital Signs: Last Vital Signs Temp 36.6 C 09/25/23 04:15 Pulse 102 H 09/25/23 04:15 Resp 18 09/25/23 04:15 BP 115/64 09/25/23 04:15 Pulse Ox 97 09/24/23 20:48 O2 Del Method Room Air 09/24/23 20:45 Pain score (VAS): 2 I/O: Intake & Output 09/24/23 09/25/23 09/25/23 23:59 07:59 15:59 Intake Total 1000 Output Total 450 Balance 550 Patient feedback: Patient satisfied with anesthetic care.
[2023-09-25 09:00] VITALS: BP 115/52; PULSE 100; RESP 18; TEMP 36.1; O2SAT 97
--- NOTE | 2023-09-25 09:11 | PM.OBPNVD ---
OB - PN: Subj Subjective Date/time seen: 09/25/23 09:11 Patient comments: no complaints and pain well controlled baby status: doing well OB - PN: Obj Data Labs 09/25/23 04:55 09/22/23 21:23 Labs: Laboratory Results - last 24 hr 09/25/23 04:55 WBC 19.6 H RBC 2.78 L Hgb 8.4 L Hct 25.6 L MCV 92.1 MCH 30.2 MCHC 32.8 RDW 13.9 Plt Count 173 MPV 10.3 Immature Gran % (Auto) 0.6 H Neut % (Auto) 78.4 H Lymph % (Auto) 9.3 L Childress % (Auto) 10.9 H Eos % (Auto) 0.5 Baso % (Auto) 0.3 Lymph # (Auto) 1.82 Childress # (Auto) 2.1 H Eos # (Auto) 0.1 Baso # (Auto) 0.1 Abs Immat Gran (auto) 0.11 H Absolute Neuts (auto) 15.4 H Absolute Nucleated RBC 0.0 Nucleated RBC % 0.0 OB - PN A/P Plan day: 1 Plan: routine care Time Spent With Patient Time: Total time spent is greater than 50% in coordination of care (as documented) at patient's floor/unit and/or counseling patient: Exam Narrative: inc c/d/i : Bimanual exam- vagina & uterus: other (Uterus firm, nt @U)
[2023-09-25 11:27] VITALS: BP 115/55; PULSE 91; RESP 18; TEMP 36; O2SAT 100
--- NOTE | 2023-09-25 11:58 | PC.NURSE ---
[id number] Introductions were made, then consulted with patient to assess needs related to . Discussed with mother her?plans to feed?her infant, the?experience so far and state it has been going well so far. RN encouraged [id number], stimulating for feeding cues and respond to feeding infant aiming for every 2-4 hours. Resources provided for inpatient and outpatient services with the mom/baby guide and name written on the communication board. Mother voiced understanding of information and will call if there is a request for assistance. Reported to the Primary RN.
--- NOTE | 2023-09-25 14:43 | PC.NURSE ---
[id number] Purposefully rounded to assess needs. Mother thinks is latching and drinking. She was encouraged to place [id number], use massage touch to stimulate for and call for assistance. On visual breast assessment they appear to have insufficient glandular development and the left is larger than the right.
--- NOTE | 2023-09-25 15:50 | PC.NURSE ---
[id number] Purposefully rounded to assess for needs. Mother is snuggling with her infant in cradle position. LC stimulated infant to wake, burping, changing positioning, changed a transitional stool diaper and placed [id number] on mother. There's no rooting at this time. Primary RN takes to the nursery for Passenger Agent assessment and states she will check the blood sugar soon as it is almost 6 hours since the last breastfeed that mother has recorded without an assessment for latch. Mother is unsure if is latching well but states she has seen drop the lower jaw with good rocking motion. Infant has had good poops and pees and is <24 hours old. Mother is encouraged to call for a latch assessment. Maternal mother is present encouraging hand expression and is supportive. Parents voiced understanding of the information.
[2023-09-25 16:55] VITALS: BP 127/81; PULSE 95; RESP 16; TEMP 36.6; O2SAT 100
[2023-09-25 20:30] VITALS: BP 130/70; PULSE 89; RESP 18; TEMP 36.6; O2SAT 98
[2023-09-26 00:30] VITALS: BP 134/77; PULSE 85; RESP 16; TEMP 36.6; O2SAT 98
[2023-09-26 03:15] VITALS: BP 131/84; PULSE 87; RESP 16; TEMP 36.6; O2SAT 100
[2023-09-26] MEDS: IBUPROFEN 600 MG TABLET PO ×3 (03:30→23:58)
[2023-09-26] MEDS: HYDROcodone/acetaminophen (*CRX) 5-325 MG TABLET 1 TAB PO ×4 (03:30→17:12)
--- NOTE | 2023-09-26 07:45 | PM.OBPNVD ---
OB - PN: Subj Subjective Date/time seen: 09/26/23 07:45 Patient comments: no complaints and pain well controlled baby status: doing well OB - PN: Obj Data Labs 09/25/23 04:55 09/22/23 21:23 OB - PN A/P Plan day: 2 Plan: routine care Time Spent With Patient Time: Total time spent is greater than 50% in coordination of care (as documented) at patient's floor/unit and/or counseling patient: Exam Narrative: inc c/d/i : Bimanual exam- vagina & uterus: other (Uterus firm, nt @U)
[2023-09-26 08:30] VITALS: BP 121/82; PULSE 86; RESP 18; TEMP 37.1; O2SAT 99
[2023-09-26] MEDS: POLYSACCHARIDE IRON COMPLEX 150 MG CAPSULE PO ×2 (08:32→17:12)
[2023-09-26] MEDS: MULTIVIT/MIN/PREN/FOL AC/IRON TABLET 1 TAB PO (08:32)
[2023-09-26] MEDS: DOCUSATE SODIUM 100 MG CAPSULE PO ×2 (08:32→17:12)
--- NOTE | 2023-09-26 09:40 | PC.NURSE ---
Breast pump provided due to maternal preference. Instructions given on cleaning, care, usage, that there should be no pain, pumping schedule for milk production, collection, and storage of human milk. Patient was assessed for correct placement, flange size, to pump for comfort and nipple stretching/stimulation for adequate milk production every 3 hours (8 times in 24 hours) 1-2 times at night.?Mother voiced understanding of the education shared along with mom/baby guide and the pump measurement, flange fit handout for additional resource information.
[2023-09-26 12:50] VITALS: BP 133/73; PULSE 88; RESP 16; TEMP 36.3; O2SAT 100
[2023-09-26 16:00] VITALS: BP 136/86; PULSE 83; RESP 16; TEMP 36.6; O2SAT 100
[2023-09-26 20:20] VITALS: BP 136/94; PULSE 96; RESP 20; TEMP 36.4
[2023-09-27] VITALS (13 sets, daily range): BP systolic 119–165; BP diastolic 75–100; PULSE 72–92; RESP 18; TEMP 36.4–36.6; O2SAT 98–100
[2023-09-27] MEDS: HYDROcodone/acetaminophen (*CRX) 5-325 MG TABLET 1 TAB PO ×3 (00:01→09:17)
[2023-09-27] MEDS: IBUPROFEN 600 MG TABLET PO (05:43)
[2023-09-27] MEDS: POLYSACCHARIDE IRON COMPLEX 150 MG CAPSULE PO ×2 (08:12→17:31)
[2023-09-27] MEDS: LABETALOL HCL 100 MG TABLET PO ×2 (08:12→16:42)
[2023-09-27] MEDS: DOCUSATE SODIUM 100 MG CAPSULE PO ×2 (08:13→17:31)
[2023-09-27] MEDS: MULTIVIT/MIN/PREN/FOL AC/IRON TABLET 1 TAB PO (08:13)
--- NOTE | 2023-09-27 08:18 | PM.OBPNVD ---
OB - PN: Subj Subjective Date/time seen: 09/27/23 0740 Interval history: Doing well overnight. Pain well controlled with po meds. Denies dizziness with ambulation or SOB. Not passing large clots or having heavy vaginal bleeding. Does report RLE pain to posterior calf. Patient comments: pain well controlled [place] baby status: bottle feeding well [place] feeding status: exclusively bottle feeding OB - PN: Obj Data Labs 09/25/23 04:55 09/22/23 21:23 OB - PN A/P Assessment and Plan (1) Right calf pain: Code(s): M79.661 - Pain in right lower leg Status: Acute Plan day: 3 Plan: routine care Time Spent With Patient Time: Total time spent is greater than 50% in coordination of care (as documented) at patient's floor/unit and/or counseling patient: Review of Systems Review of Systems: All systems reviewed & are unremarkable except as noted in HPI and below Cardiovascular: Cardiovascular: Reports edema and Reports claudication (R calf pain with ambulation) Exam Const: General: cooperative, no acute distress and awake Orientation/consciousness: patient oriented x3 Limitations: no limitations Resp: Effort & Inspection: normal respiratory effort and able to speak in complete sentences Auscultation: clear to auscultation bilaterally Cardio: Rate: regular rate Peripheral pulses: Peripheral pulses 2+ throughout and dorsalis pedis present Other: @[facility] GI: Inspection: normal to inspection Auscultation: normal bowel sounds : General: Yes bladder normal to palpation Speculum Exam - Vagina: vaginal bleeding Bimanual exam- vagina & uterus: bladder normal to palpation OB/external & speculum: vaginal bleeding Other: Fundus firm Skin: General skin exam: normal color Other: Incision Neuro: General: patient oriented x3 Cognition (Neuro): normal cognition Speech: normal speech Extrem: General: normal to inspection Right lower extremity: edema Details: pitting and 2+ Left lower extremity: edema Details: pitting and 2+ Other: Right posterior calf pain with ambulation, palpation. Neg homans sign. Psych: Appearance: grossly normal Mental Status: mental status grossly normal Speech and movement: Normal speech and movement present Affect: normal affect Attitude: cooperative Thought process: Normal thought process present
[2023-09-27] MEDS: IRON SUCROSE COMPLEX 500 MG in SODIUM CHLORIDE 0.9% IV 250 ML 78.57 MG IVPB (11:47)
--- NOTE | 2023-09-27 14:06 | PC.NURSE ---
1120 Introductions were made, then consulted with patient to assess needs related to and pumping. Discussed with mother her?plans to feed?her and the?experience so far. Resources provided for inpatient and outpatient services with the feeding sheet, mom/baby guide and name written on the communication board. Mother voiced understanding of information and will call if there is a request for assistance. Reported to the Primary RN.
--- NOTE | 2023-09-27 15:45 | PM.OBPNVD ---
OB - PN: Subj Subjective Date/time seen: 09/27/23 15:45 Interval history: . OB - PN: Obj Data Labs 09/25/23 04:55 09/22/23 21:23 Imaging Radiologist's impression: Impressions Venous Doppler Study 09/27/23 08:38 IMPRESSION: 1: No lower extremity deep venous thrombosis. OB - PN A/P Plan day: 3 Plan: routine care Comments: Due to severe BP, will increase Labetalol to 200mg BID and check CBC, CMP. No sustained severe range BPs. RN states pt has no TRAN, visual changes, or RUQ pain. Doppler study from am is neg for DVT. Plan BP monitoring overnight. Sign out given to Dr. Gutierrez. Time Spent With Patient Time: Total time spent is greater than 50% in coordination of care (as documented) at patient's floor/unit and/or counseling patient:
[2023-09-27 17:52] LABS: Basophils Percent Auto 0.3 % (0.2-1.2); Eosinophils Absolute Auto 0.1 K/mm3 (0-0.3); Eosinophils Percent Auto 1.5 % (0-4.4); Hematocrit 24.3 % (37.0-47.0); Hemoglobin 7.9 g/dL (12.0-15.0); Immature Granulocyte Absolute 0.12 K/mm3 (0.00-0.031); Immature Granulocyte Percent A 1.3 % (0-0.5); Lymphocytes Absolute Auto 1.56 K/mm3 (0.9-3.2); Lymphocytes Percent Auto 16.8 % (18.3-44.2); Mean Corpuscular HGB Conc 32.5 g/dl (32-36); Mean Corpuscular Hemoglobin 29.9 pg (26-34); Mean Platelet Volume 10.3 fl (7.4-10.4); Monocytes Absolute Auto 0.7 K/mm3 (0.1-0.6); Monocytes Percent Auto 7.8 % (2.6-8.5); Neutrophils Absolute Auto 6.7 K/mm3 (1.3-6.7); Neutrophils Percent Auto 72.3 % (45.5-73.1); Platelet Count Result 227 k/mm3 (150-375); Red Blood Count 2.64 M/mm3 (4.2-5.4); Red Cell Distribution Width 14.2 % (11.5-14.5); White Blood Count 9.3 K/mm3 (4.5-10.0)
[2023-09-27 18:00] LABS: Alanine Aminotransferase 11 U/L (6-35); Albumin Level 3.2 g/dL (3.5-5.1); Alkaline Phosphatase 128 U/L (38-126); Anion Gap 10 mmol/L (8-16); Aspartate Amino Transferase 23 U/L (14-36); Bilirubin,Total 0.4 mg/dL (0.2-1.3); Blood Urea Nitrogen 11 mg/dL (7-17); Calcium 8.7 mg/dL (8.4-10.2); Carbon Dioxide 21 mmol/L (22-30); Chloride 106 mmol/L (98-107); Estimated CRCL calculation 99 ml/min; Estimated Glomerular Filt Rate > 60; Glucose 83 mg/dL (65-110); Potassium 3.7 mmol/L (3.4-5.0); Sodium 137 mmol/L (137-145)
[2023-09-27] MEDS: FUROSEMIDE INJ 40 MG/4 ML VIAL IV PUSH (19:18)
[2023-09-27] MEDS: ACETAMINOPHEN 325 MG TABLET 650 MG PO (19:23)
[2023-09-27] MEDS: LABETALOL HCL 100 MG TABLET 200 MG PO (21:40)
[2023-09-28] VITALS: BP 140/87; PULSE 87; RESP 18; TEMP 37.1; O2SAT 100
[2023-09-28 04:00] VITALS: BP 126/77; PULSE 84; RESP 18; TEMP 36.8; O2SAT 100
--- NOTE | 2023-09-28 08:21 | P.PNOB_ITS ---
OB - PN: Subj Subjective Date/time seen: 09/28/23 08:21 Blood pressures have responded nicely to increased dose. Symptomatically fine without issue. Will monitor the rest today and see if she needs to be changed to Q 8hour dosing from her 12hour dosing. Regardless unless she changes any significant symptoms we will discharge home later today with follow-up in the office in 48hours. Interval history: . OB - PN: Obj Data Labs 09/27/23 17:22 09/27/23 17:22 Labs: Laboratory Results - last 24 hr 09/27/23 17:22 WBC 9.3 RBC 2.64 L Hgb 7.9 L Hct 24.3 L MCV 92.0 MCH 29.9 MCHC 32.5 RDW 14.2 Plt Count 227 MPV 10.3 Immature Gran % (Auto) 1.3 H Neut % (Auto) 72.3 Lymph % (Auto) 16.8 L [place] % (Auto) 7.8 Eos % (Auto) 1.5 Baso % (Auto) 0.3 Lymph # (Auto) 1.56 [place] # (Auto) 0.7 H Eos # (Auto) 0.1 Baso # (Auto) 0.0 Abs Immat Gran (auto) 0.12 H Absolute Neuts (auto) 6.7 Absolute Nucleated RBC 0.0 Nucleated RBC % 0.0 Sodium 137 Potassium 3.7 Chloride 106 Carbon Dioxide 21 L Anion Gap 10 BUN 11 Creatinine 0.80 Estim Creat Clear Calc 99 Estimated GFR > 60 Glucose 83 Calcium 8.7 Total Bilirubin 0.4 AST 23 ALT 11 Alkaline Phosphatase 128 H Total Protein 6.0 L Albumin 3.2 L Imaging Radiologist's impression: Impressions Venous Doppler Study 09/27/23 08:38 IMPRESSION: 1: No lower extremity deep venous thrombosis. OB - PN A/P Time Spent With Patient Time: Total time spent is greater than 50% in coordination of care (as documented) at patient's floor/unit and/or counseling patient:
--- NOTE | 2023-09-28 08:23 | P.DS_ITS ---
DS: Admitting Diagnosis Discharge Date 09/28/2023 Admitting Diagnosis OB - DS: Summary OB Procedures : None OB Procedures Intrapartum: OB Procedures: : None Peripartum Data Procedures: Procedures Operation Date: 09/24/23 17:45 Actual Procedure Side Surgeon p Section Flores Meléndez MD Time Spent with Patient Time attestation: Total time spent providing and/or coordinating discharge services: DS: Data Data Completed and Pending Completed studies during hospitalization: Pending at discharge 09/24/23 19:16 Surgical [PTH] Routine Labs on day of discharge: Labs from last 24 hours 09/27/23 17:22 WBC 9.3 RBC 2.64 L Hgb 7.9 L Hct 24.3 L MCV 92.0 MCH 29.9 MCHC 32.5 RDW 14.2 Plt Count 227 MPV 10.3 Immature Gran % (Auto) 1.3 H Neut % (Auto) 72.3 Lymph % (Auto) 16.8 L [place] % (Auto) 7.8 Eos % (Auto) 1.5 Baso % (Auto) 0.3 Lymph # (Auto) 1.56 [place] # (Auto) 0.7 H Eos # (Auto) 0.1 Baso # (Auto) 0.0 Abs Immat Gran (auto) 0.12 H Absolute Neuts (auto) 6.7 Absolute Nucleated RBC 0.0 Nucleated RBC % 0.0 Sodium 137 Potassium 3.7 Chloride 106 Carbon Dioxide 21 L Anion Gap 10 BUN 11 Creatinine 0.80 Estim Creat Clear Calc 99 Estimated GFR > 60 Glucose 83 Calcium 8.7 Total Bilirubin 0.4 AST 23 ALT 11 Alkaline Phosphatase 128 H Total Protein 6.0 L Albumin 3.2 L Discharge Plan Discharge Attending physician on discharge: Flores Meléndez Discharging Clinician: Flores Meléndez Anticipated Discharge Date/Time: 09/27/23 18:48 Patient Disposition: Home, Self-Care Activity: may shower, may drive after 2 weeks and pelvic rest Diet: regular Wound Care Instructions: incision open to air Patient Instructions: Antibiotic Form Stand Alone Forms: General Discharge Information Follow-up/Referrals: Irish Sesay CNM [Certified Nurse Vice President Business & Corporate Development] - 1 Week ( and 6 weeks) Discharge Medications: New labetalol 100 mg Tablet 200 mg PO Q12HR Qty: 60 0RF ibuprofen 600 mg Tablet 600 mg PO Q6H PRN (Reason: Cramping) Qty: 30 0RF docusate sodium [Colace] 100 mg capsule 100 mg PO BID Qty: 60 0RF ibuprofen 600 mg tablet 600 mg PO Q6H PRN (Reason: pain) Qty: 30 0RF norethindrone (contraceptive) 0.35 mg tablet 0.35 mg PO DAILY Qty: 84 4RF Continued #2 Tablet 1 tablet Discontinued valacyclovir [Valtrex] 500 mg Tablet 500 mg PO BID No Action ferrous sulfate 325 mg (65 mg iron) Tablet 325 mg PO DAILY Date of admission: 09/22/23 17:35 Primary Care Provider: Lemuel Meraz Admitting Provider: Flores Meléndez Attending physician on admission: Flores Meléndez Condition: Stable
[2023-09-28 08:25] VITALS: BP 147/79; PULSE 88; RESP 16; TEMP 36.6; O2SAT 99
[2023-09-28 08:30] VITALS: PULSE 88
[2023-09-28] MEDS: DOCUSATE SODIUM 100 MG CAPSULE PO (08:30)
[2023-09-28] MEDS: MULTIVIT/MIN/PREN/FOL AC/IRON TABLET 1 TAB PO (08:30)
[2023-09-28] MEDS: LABETALOL HCL 100 MG TABLET 200 MG PO (08:30)
[2023-09-28] MEDS: IBUPROFEN 600 MG TABLET PO (08:30)
[2023-09-28] MEDS: POLYSACCHARIDE IRON COMPLEX 150 MG CAPSULE PO (09:48)
[2023-09-28 12:00] VITALS: BP 137/69; PULSE 75
[2023-09-28 15:00] VITALS: BP 137/81; PULSE 78
[2023-09-30 08:25] VITALS: BP 164/94; PULSE 72; RESP 18; TEMP 36.9; O2SAT 100
== END 2023-09-28 16:20 | disposition home or self-care (01) | DRG 788 ==
LOC: ANHLDR 09-24 18:48 → ANHOB2 09-24 21:06
PROVIDERS: Admitting Provider Obstetrics & Gynecology Gynecology; PCP Emergency Medicine; Referring Provider Advanced Practice Midwife; Visit Provider Obstetrics & Gynecology Gynecology
PROC: 10D00Z1 Extraction of Products of Conception, Low, Open Approach (ICD-10-PCS; CPT 59514; principal; 2023-09-24 17:45)
DX: O13.4 Gestational [pregnancy-induced] hypertension without significant proteinuria, complicating childbirth (principal); Z37.0 Single live birth; Z3A.39 39 weeks gestation of pregnancy; O77.0 Labor and delivery complicated by meconium in amniotic fluid; O36.8330 Maternal care for abnormalities of the fetal heart rate or rhythm, third trimester, not applicable or unspecified; O42.013 Preterm premature rupture of membranes, onset of labor within 24 hours of rupture, third trimester; O62.0 Primary inadequate contractions
CPT/HCPCS: 36415; 80053; 85025; 86592; 86850; 86900; 86901; 88307; 93971; A9270; J0290; J0456; J0690; J1200; J1756; J1885; J1940; J2274; J2405; J2590; J2795; J3010; J7030; J7050; J7120

== ENCOUNTER 2023-09-30 08:33 | Outpatient (CLI) | payer BC, SELFPAY ==
[2023-09-30] VITALS (7 sets, daily range): BP systolic 136–150; BP diastolic 55–91; PULSE 55–64
[2023-09-30 08:59] LABS: Hematocrit 25.5 % (37.0-47.0); Hemoglobin 8.4 g/dL (12.0-15.0); Mean Corpuscular HGB Conc 32.9 g/dl (32-36); Mean Corpuscular Volume 91.1 fl (80-100); Mean Platelet Volume 9.2 fl (7.4-10.4); Platelet Count Result 244 k/mm3 (150-375); Red Cell Distribution Width 13.4 % (11.5-14.5); White Blood Count 10.4 K/mm3 (4.5-10.0)
[2023-09-30] MEDS: ONDANSETRON HCL ODT 4 MG TABLET PO (09:08)
[2023-09-30 09:17] LABS: Band Neutrophils Percent 7 % (0-6); Eosinophils Percent Manual 1 % (0-4); Lymphocytes Absolute Manual 3.22 K/mm3 (1.1-4.5); Monocytes Absolute Manual 1.24 K/mm3 (0.1-0.90); Monocytes Percent Manual 12 % (3-9); Neutrophils Absolute Manual 5.82 K/mm3 (1.7-7.2); Neutrophils Percent Manual 49 % (46-73); Total Cells Counted 100
[2023-09-30 09:18] LABS: Hypochromasia 1+ (NORMAL); Platelet Estimate Adequate (Adequate); Schistocytes None Seen (NORMAL)
[2023-09-30 09:25] LABS: Alanine Aminotransferase 24 U/L (6-35); Albumin Level 3.5 g/dL (3.5-5.1); Alkaline Phosphatase 120 U/L (38-126); Anion Gap 8 mmol/L (8-16); Aspartate Amino Transferase 34 U/L (14-36); Bilirubin,Total 0.4 mg/dL (0.2-1.3); Blood Urea Nitrogen 7 mg/dL (7-17); Calcium 9.1 mg/dL (8.4-10.2); Carbon Dioxide 28 mmol/L (22-30); Chloride 103 mmol/L (98-107); Estimated Glomerular Filt Rate > 60; Glucose 92 mg/dL (65-110); Potassium 3.7 mmol/L (3.4-5.0); Sodium 139 mmol/L (137-145)
--- NOTE | 2023-09-30 10:21 | PC.NURSE ---
Mark Sesay notified of BP and lab results, ok to dc home, keep followup and call for BP 160/110 or greater. Cont labetalol.
== END 2023-09-30 10:25 | disposition home or self-care (01) ==
LOC: ANHOBOP 08:39 → ANHOBPP 08:39
PROVIDERS: Advanced Practice Midwife; Visit Provider Obstetrics & Gynecology Gynecology
DX: O13.9 Gestational [pregnancy-induced] hypertension without significant proteinuria, unspecified trimester (principal); Z3A.00 Weeks of gestation of pregnancy not specified
CPT/HCPCS: 36415; 80053; 84550; 85025; 99199; A9270

== ENCOUNTER 2025-10-06 08:50 | Emergency (ER) | payer BC, SELFPAY ==
--- NOTE | 2025-10-06 08:51 | ED_ITS ---
HPI - URI/Sore Throat General Chief Complaint: Upper Respiratory Infection Stated Complaint: SORE THROAT/COUGH Time Seen by Provider: 10/06/25 08:51 Source: patient Mode of arrival: ambulatory Limitations: no limitations History of Present Illness HPI Narrative: Siomara is a 30-year-old female patient presenting to the clinic today with complaints of sore throat, fever, ear pain, and cough x3 days. She reports h ighest fever is 103? F. She works in [employer] at [employer] and is exposed to lot of people. States she woke up this morning and her throat was hurting very badly. Ears are popping. Has taken Sudafed and ibuprofen for her symptoms. Related Data Allergies Allergy/AdvReac Type Severity Reaction Status Date / Time No Known Allergies Allergy Verified 10/06/25 08:57 Review of Systems Review of Systems: Pertinent positives per HPI. Patient denies any rash, headache, visual changes, dizziness, cough, shortness of breath, chest pain, palpitations, nausea, vomiting, diarrhea, constipation, abdominal pain, or any urinary issues. [facility] Past Medical History Medical History Sinusitis Strep pharyngitis Surgical History Surgical History [place] teeth extracted Family History Family History Mother Patient's mother is in good health Father Patient's father is in good health Grandparent Hypertension Sibling Patient's sister is in good health Patient's brother is in good health Other Diabetes mellitus Family history of arthritis Family history of cardiovascular disease Family history of gout Social History Social History Smoking status: Never smoker Second hand tobacco smoke exposure: No Alcohol intake: current Alcohol use details: social Substance use: never Lack of Transportation: No Lack of Food: Never True Current Housing: I Have Housing Concerned About Future Housing: No Difficulty Paying Gas/Electric Bills: No Difficulty Paying for Meds: No Currently Unemployed: No Education: Master's Degree or Higher Difficulty w/ Childcare or Family Care: No Living arrangements: with family Gender identity (if verbalized by the patient): Female Sexual Orientation (if Verbalized by the Patient): Straight or Heterosexual Spiritual care concerns: No Comments At the time of my signature, I reviewed and agree with the nursing past medical, surgical, social, and family history. There is no relevant family history pertinent to the patient complaint. Exam Narrative: General: Well-developed, morbidly obese, in no apparent distress Head: Normocephalic, atraumatic Eyes: Pupils equally round and reactive to light bilaterally, EOM intact, sclera and conjunctive clear, no discharge, lids normal Ears: TMs intact and clear, ear canals clear, no drainage, grossly hearing normal. Nose: Nares patent, no discharge, no inflammation, no sinus tenderness. Mouth: Oral pharynx red with bilateral tonsillar enlargement with exudate to bilateral tonsils without lesions or masses, good dentition, MMM. Neck: Supple, trachea midline, no enlargement of anterior or posterior cervical nodes, no thyroid masses or goiter palpable. Cardio: Tachycardic- Regular rate and rhythm, s1 and s2 normal, no murmur appreciated. Resp: Clear to auscultation bilaterally, no rhonchi, rales, wheezing or rubs Course Course Level of Care: Express Care Visit Vital Signs Vital signs: Vital Signs Temperature 36.4 C L 10/06/25 09:04 Pulse Rate 114 H 10/06/25 09:04 Respiratory Rate 16 10/06/25 09:04 Blood Pressure 156/94 H 10/06/25 09:04 Pulse Oximetry 100 10/06/25 09:04 Oxygen Delivery Room Air 10/06/25 09:04 Temperature 36.4 C L 10/06/25 09:04 Pulse Rate 114 H 10/06/25 09:04 Respiratory Rate 16 10/06/25 09:04 Blood Pressure 156/94 H 10/06/25 09:04 Pulse Oximetry 100 10/06/25 09:04 Oxygen Delivery Room Air 10/06/25 09:04 [facility] Narrative Medical decision making narrative: At the time of visit patient is resting comfortably on the exam table. Patient appears to be nontoxic. complaints of sore throat, fever, ear pain, and cough x3 days. She reports highest fever is 103? F. She works in [employer] at [employer] and is exposed to lot of people. States she woke up this morning and her throat was hurting very badly. Ears are popping. Has taken Sudafed and ibuprofen for her symptoms. On exam patient has bilateral TMs intact and clear, no nasal drainage, no anterior turbinate inflammation, oral pharynx red with bilateral tonsillar enlargement with exudate, was positive anterior cervical lymphadenopathy, lung sounds are clear, heart rates tachycardic but regular rate and rhythm. Strep test was ordered. Labs: Strep test was positive in the clinic today. Plan: I suspect patient has strep pharyngitis. Prescription for amoxicillin was sent to pharmacy. Work note was given. Supportive measures were discussed with the patient and they voiced understanding discharge instructions and agrees to treatment plan. Return precautions reviewed Differential Diagnosis Differential Diagnosis: Differential diagnostic considerations for upper respiratory infection include upper respiratory infection, croup, otitis media, sinusitis, viral infection, bronchitis, influenza, pharyngitis, strep, uvulitis. Lab Data Labs: Lab Results 10/06/25 Range/Units 09:09 POC Grp A Strep Screen Positive (Negative) Discharge Plan Discharge Clinical Impression: Acute streptococcal pharyngitis Patient Disposition: Home Condition: Stable Instructions: Antibiotic Form, Strep Throat (ED) Additional Instructions: Strep test was positive in the clinic today Take prescription medications only as prescribed-amoxicillin Increase fluids and stay well hydrated May take Tylenol or motrin as directed on bottle for pain/fever May use Flonase 1 spray in each nare daily May take OTC antihistamines such as Zyrtec or Claritin daily as directed on bottle May apply Vicks vapor rub to chest to open sinuses Sinus rinses for congestion Cepacol spray, cough drops, throat lozenges, warm tea with honey/lemon, gargle salt water to soothe throat BRAT diet for diarrhea Clear liquids x 24 hours then advance as tolerated for nausea/vomiting Go to the ED if you develop a worsening in your condition- high fever not controlled by Tylenol or Motrin, dehydration, weakness, lethargy, shortness of breath, or chest pain. Follow up with your PCP in 3-5 days if symptoms persist. Patient Language: Macedonian Prescriptions: New amoxicillin 875 mg tablet 875 mg PO Q12H 10 Days Qty: 20 0RF Follow-up/Referrals: UNKNOWN,DOCTOR [Non-Staff] Stand Alone Forms: Work/School Release IP Time of Disposition: 09:11 Quality NIHSS Nursing Documentation ED NIHSS nursing documentation: reviewed/agree
[2025-10-06 09:04] VITALS: BP 156/94; PULSE 114; RESP 16; TEMP 36.4; O2SAT 100
[2025-10-06 09:11] LABS: EDSTREPNEGPOS1 Positive (Negative)
== END 2025-10-06 09:14 | disposition home or self-care (01) ==
PROVIDERS: Emergency Provider Nurse Practitioner Family
DX: J02.0 Streptococcal pharyngitis (principal)
CPT/HCPCS: 87880; 99213; G0463